=== PATIENT | male | born 1960 | race Caucasian/White ===

== ENCOUNTER → 2016-11-21 | Outpatient (CLI) | payer MEDICARE, MEDICAID ==
[~2016-11-21] MED LIST: AMLO10TA80 PO; ASPI-1159 PO; BRIM5DRO6 OP; CINA90TA PO; DORZOLAMIDE RIGHTEYE; HYDR-4135 PO; INSLAN SQ; INSNOV SUBCUT; LOPE2CAP PO; SEVE800T PO
== END | disposition home or self-care (01) ==
LOC: RAD 09:15
PROVIDERS: ATTEND Internal Medicine Nephrology
DX: Z01.810 Encounter for preprocedural cardiovascular examination (principal); R94.31 Abnormal electrocardiogram [ECG] [EKG]
CPT/HCPCS: 93005

== ENCOUNTER → 2017-07-13 | Outpatient (CLI) | payer MEDICARE, MEDICAID ==
[~2017-07-13] MED LIST changes: +BARIUM SULFATE 450ML ORAL SUSP ONE; +REN800 PO; -SEVE800T PO
== END | disposition home or self-care (01) ==
LOC: CT 08:33
PROVIDERS: ATTEND Internal Medicine Nephrology
DX: N26.1 Atrophy of kidney (terminal) (principal); I25.10 Atherosclerotic heart disease of native coronary artery without angina pectoris
CPT/HCPCS: 74176

== ENCOUNTER → 2017-07-20 | Outpatient (CLI) | payer MEDICARE, MEDICAID ==
[~2017-07-20] MED LIST changes: -BARIUM SULFATE 450ML ORAL SUSP ONE
== END | disposition home or self-care (01) ==
LOC: US 09:53
PROVIDERS: ATTEND Internal Medicine Nephrology
DX: N43.3 Hydrocele, unspecified (principal)
CPT/HCPCS: 76870; 93976

== ENCOUNTER → 2020-09-08 | Outpatient (CLI) | payer MEDICARE, MEDICAID ==
[~2020-09-08] MED LIST changes: -ASPI-1159 PO; +ASPI-1497 PO; +BRIM10DR2 OP; +BRIM15DR2 EACHEYE; +CINA30 PO; +CIPROFLAXACIN RIGHTEYE; +HYDR-4134 PO; +INSU3INS6 SUBCUT; +INSU3INS8 SQ; +LATA2.5D14 OP; +LOPE2TAB26 PO; +METH50TA5 PO; +NEBI5TAB3 PO; +NEO/3.5O OP; +NEOMYCIN OP; +PRED1DRO BOTHEYE; +PRED5DRO22 OP
== END | disposition home or self-care (01) ==
LOC: CT 10:30
PROVIDERS: ATTEND Internal Medicine Nephrology
DX: K80.20 Calculus of gallbladder without cholecystitis without obstruction (principal); N41.2 Abscess of prostate; I70.0 Atherosclerosis of aorta
CPT/HCPCS: 74176

== ENCOUNTER 2020-12-31 22:14 | Inpatient (IN) | payer MEDICARE, MEDICAID ==
[~2020-12-31] VITALS: Ht 167.6 cm; Wt 53.8 kg
[~2020-12-31 22:14] MED LIST changes: -NEO/3.5O OP; +NEOM3.5O42 OP
[2020-12-31 23:49] LABS: BASOPHILS % 1.3 % (0.0-2.0); EOSINOPHILS % 3.8 % (0.0-5.0); HEMATOCRIT. 36.2 % (42.0-52.0); HEMOGLOBIN. 12.1 g/dL (14.0-18.0); LYMPHOCYTES % 16.2 % (20.0-50.0); MEAN CORPUSCULAR HEMOGLOBIN 31.7 pg (28.0-32.0); MEAN CORPUSCULAR VOLUME 94.6 fL (80.0-94.0); NEUTROPHILS % 70.7 % (40.0-76.0); PLATELET 121 x1000/uL (130-400); RED BLOOD CELL COUNT 3.82 mill/uL (4.7-6.1); RED CELL DISTRIBUTION WIDTH 15.5 % (11.6-14.6)
[2020-12-31 23:57] LABS: CHLORIDE 100 mEq/L (98-107)
[2021-01-01] MEDS ORDERED: LABETALOL 5MG/ML SYR 20 MG/4 ML SYRINGE IV ONE (01:15)
[2021-01-01] MEDS ORDERED: HYDRALAZINE 20MG/ML VIAL IV ONE (04:15)
[2021-01-01] MEDS ORDERED: GUAIFENESIN 200MG/10ML SUGAR FREE UDC PO PRN (07:45)
[2021-01-01] MEDS ORDERED: ACETAMINOPHEN 325MG TABLET PO PRN ×2 (07:45)
[2021-01-01] MEDS ORDERED: ENOXAPARIN 40MG/0.4ML SYR SUBCUT SCH (07:45)
[2021-01-01] MEDS ORDERED: DEXTROSE 50% WATER 50ML SYRINGE IV PRN (07:45)
[2021-01-01] MEDS ORDERED: MAGNESIUM/ALUMINUM HYDROXIDE/SIMETHICONE 30ML UDC PO PRN (07:45)
[2021-01-01] MEDS ORDERED: TRAMADOL 50MG TABLET PO PRN (07:45)
[2021-01-01] MEDS ORDERED: ONDANSETRON HCL 4MG/2ML INJ IV PRN (07:45)
[2021-01-01] MEDS ORDERED: DIPHENHYDRAMINE 50MG/ML VIAL IV PRN (07:45)
[2021-01-01] MEDS ORDERED: IPRATROPIUM/ALBUTEROL 0.5-3(2.5)MG/3ML NEB NEB PRN (07:45)
[2021-01-01] MEDS ORDERED: ZOLPIDEM TARTRATE 5MG TABLET PO PRN (07:45)
[2021-01-01] MEDS ORDERED: ACETAMINOPHEN 650MG/20.3ML UDC GT PRN (07:45)
[2021-01-01] MEDS ORDERED: DOCUSATE SODIUM 100MG CAPSULE PO PRN (07:45)
[2021-01-01] MEDS ORDERED: NITROGLYCERIN 0.4MG TABLET SL SL PRN (07:45)
[2021-01-01] MEDS: INSULIN LISPRO 100 UNITS/ML SUBCUT SCH ×4 (08:20→21:00)
[2021-01-01] MEDS: BLOOD SUGAR DIAGNOSTIC STRIP TEST SCH ×4 (08:25→21:46)
[2021-01-01] MEDS: AMLODIPINE 10MG TABLET PO SCH (08:55)
[2021-01-01] MEDS: FAMOTIDINE 20MG TABLET PO SCH (08:55)
[2021-01-01] MEDS: ENOXAPARIN 30MG/0.3ML SYR SUBCUT SCH (08:55)
[2021-01-01] MEDS: METOPROLOL TARTRATE 25MG TABLET PO SCH ×2 (08:55→20:27)
[2021-01-01] MEDS ORDERED: FAMOTIDINE 20MG TABLET PO SCH (09:00)
[2021-01-01 10:03] LABS: TOTAL IRON BINDING CAPACITY 185 ug/dL (250-450)
[2021-01-01 10:15] LABS: FOLIC ACID (FOLATE) SERUM 5.9 ng/mL (>5.38)
[2021-01-01 11:16] LABS: HEPATITIS B SURFACE ANTIGEN NEGATIVE
[2021-01-01] MEDS: CLONIDINE 0.1MG TABLET PO PRN (11:43)
[2021-01-01 11:46] LABS: HEPATITIS A AB IGM NEGATIVE (NEGATIVE)
[2021-01-01] MEDS ORDERED: NALOXONE HCL 0.4MG/ML VIAL IV PRN (13:30)
[2021-01-01] MEDS: HYDRALAZINE HCL 50MG TABLET PO SCH ×2 (14:11→22:00)
[2021-01-01 17:55] VITALS: BP 138/72
[2021-01-01 17:57] VITALS: BP 138/72
[2021-01-01 20:00] VITALS: BP 144/83
[2021-01-01 21:31] LABS: CREATINE KINASE 78 IU/L (39-308); CREATINE KINASE MB FRACTION < 1.0 ng/mL (0.5-3.6)
[2021-01-01 22:00] VITALS: BP 137/69
[2021-01-01 23:47] LABS: CREATINE KINASE MB FRACTION 1.3 ng/mL (0.5-3.6)
[2021-01-02] VITALS (12 sets, daily range): BP systolic 107–167; BP diastolic 66–94
[2021-01-02] MEDS: CLONIDINE 0.1MG TABLET PO PRN (04:17)
[2021-01-02 06:45] LABS: EOSINOPHILS % 3.8 % (0.0-5.0); HEMATOCRIT. 38.6 % (42.0-52.0); HEMOGLOBIN. 12.6 g/dL (14.0-18.0); LYMPHOCYTES % 19.7 % (20.0-50.0); MEAN CORPUSCULAR HEMOGLOBIN 31.1 pg (28.0-32.0); MEAN PLATELET VOLUME 8.4 fl (7.4-10.4); MONOCYTES % 9.1 % (2.0-8.0); NEUTROPHILS % 65.4 % (40.0-76.0); PLATELET 114 x1000/uL (130-400); RED BLOOD CELL COUNT 4.06 mill/uL (4.7-6.1); RED CELL DISTRIBUTION WIDTH 15.4 % (11.6-14.6)
[2021-01-02 06:59] LABS: CHLORIDE 101 mEq/L (98-107)
[2021-01-02 07:06] LABS: PHOSPHORUS 2.3 mg/dL (2.5-4.9)
[2021-01-02] MEDS: METOPROLOL TARTRATE 25MG TABLET PO SCH ×2 (08:16→21:48)
[2021-01-02] MEDS: FAMOTIDINE 20MG TABLET PO SCH (08:16)
[2021-01-02] MEDS: AMLODIPINE 10MG TABLET PO SCH (08:16)
[2021-01-02] MEDS: ENOXAPARIN 30MG/0.3ML SYR SUBCUT SCH (08:16)
[2021-01-02] MEDS: HYDRALAZINE HCL 50MG TABLET PO SCH ×3 (08:16→21:48)
[2021-01-02] MEDS: BLOOD SUGAR DIAGNOSTIC STRIP TEST SCH ×4 (08:17→20:46)
[2021-01-02] MEDS: INSULIN LISPRO 100 UNITS/ML SUBCUT SCH ×4 (08:17→21:48)
[2021-01-02] MEDS ORDERED: LORAZEPAM 2MG/ML CPJ IV NR (10:45)
[2021-01-03] VITALS (11 sets, daily range): BP systolic 135–153; BP diastolic 50–82
[2021-01-03] MEDS: BLOOD SUGAR DIAGNOSTIC STRIP TEST SCH ×4 (06:03→21:00)
[2021-01-03] MEDS: HYDRALAZINE HCL 50MG TABLET PO SCH ×3 (06:28→21:22)
[2021-01-03] MEDS: INSULIN LISPRO 100 UNITS/ML SUBCUT SCH ×4 (06:29→21:00)
[2021-01-03 06:54] LABS: BASOPHILS % 1.4 % (0.0-2.0); EOSINOPHILS % 4.1 % (0.0-5.0); HEMATOCRIT. 36.1 % (42.0-52.0); LYMPHOCYTES % 27.5 % (20.0-50.0); MEAN CORPUSCULAR HEMOGLOBIN 31.1 pg (28.0-32.0); MEAN CORPUSCULAR VOLUME 93.5 fL (80.0-94.0); MEAN PLATELET VOLUME 9.1 fl (7.4-10.4); MONOCYTES % 10.4 % (2.0-8.0); NEUTROPHILS % 56.6 % (40.0-76.0); PLATELET 134 x1000/uL (130-400); RED BLOOD CELL COUNT 3.86 mill/uL (4.7-6.1); RED CELL DISTRIBUTION WIDTH 14.8 % (11.6-14.6)
[2021-01-03] MEDS: ENOXAPARIN 30MG/0.3ML SYR SUBCUT SCH (08:17)
[2021-01-03] MEDS: AMLODIPINE 10MG TABLET PO SCH (08:17)
[2021-01-03] MEDS: FAMOTIDINE 20MG TABLET PO SCH (08:17)
[2021-01-03] MEDS: METOPROLOL TARTRATE 25MG TABLET PO SCH ×2 (08:17→21:22)
[2021-01-03] MEDS ORDERED: LORAZEPAM 2MG/ML CPJ IV NR (14:45)
[2021-01-04] VITALS (12 sets, daily range): BP systolic 128–148; BP diastolic 59–81
[2021-01-04] MEDS: BLOOD SUGAR DIAGNOSTIC STRIP TEST SCH ×4 (06:26→21:00)
[2021-01-04] MEDS: HYDRALAZINE HCL 50MG TABLET PO SCH ×3 (06:26→22:30)
[2021-01-04] MEDS: INSULIN LISPRO 100 UNITS/ML SUBCUT SCH ×4 (06:32→21:00)
[2021-01-04 06:55] LABS: BASOPHILS % 2.5 % (0.0-2.0); HEMATOCRIT. 37.9 % (42.0-52.0); HEMOGLOBIN. 12.5 g/dL (14.0-18.0); LYMPHOCYTES % 27.4 % (20.0-50.0); MEAN CORPUSCULAR HEMOGLOBIN 31.1 pg (28.0-32.0); MEAN CORPUSCULAR VOLUME 94.2 fL (80.0-94.0); MEAN PLATELET VOLUME 9.2 fl (7.4-10.4); MONOCYTES % 10.1 % (2.0-8.0); PLATELET 134 x1000/uL (130-400); RED BLOOD CELL COUNT 4.03 mill/uL (4.7-6.1); RED CELL DISTRIBUTION WIDTH 14.9 % (11.6-14.6)
[2021-01-04] MEDS: AMLODIPINE 10MG TABLET PO SCH (08:12)
[2021-01-04] MEDS: FAMOTIDINE 20MG TABLET PO SCH (08:12)
[2021-01-04] MEDS: ENOXAPARIN 30MG/0.3ML SYR SUBCUT SCH (08:12)
[2021-01-04] MEDS: METOPROLOL TARTRATE 25MG TABLET PO SCH ×2 (08:12→22:30)
[2021-01-05] VITALS (11 sets, daily range): BP systolic 101–145; BP diastolic 55–74
[2021-01-05] MEDS: BLOOD SUGAR DIAGNOSTIC STRIP TEST SCH ×3 (06:20→16:28)
[2021-01-05] MEDS: HYDRALAZINE HCL 50MG TABLET PO SCH ×2 (06:20→14:12)
[2021-01-05] MEDS: INSULIN LISPRO 100 UNITS/ML SUBCUT SCH ×3 (07:20→16:28)
[2021-01-05] MEDS: FAMOTIDINE 20MG TABLET PO SCH (08:22)
[2021-01-05] MEDS: ENOXAPARIN 30MG/0.3ML SYR SUBCUT SCH (08:22)
[2021-01-05] MEDS: AMLODIPINE 10MG TABLET PO SCH (08:23)
[2021-01-05] MEDS: METOPROLOL TARTRATE 25MG TABLET PO SCH (08:23)
== END 2021-01-05 23:57 | DRG 91 ==
LOC: ER 23:17 → 3WST 01-01 04:16 → EDBEDREQTM 01-01 04:19 → EDBEDREQ 01-01 04:19 → SUPCPDRO 01-01 07:37 → ENRESERV 01-01 16:56 → 3WST 01-02 09:13
PROVIDERS: ADMIT Internal Medicine; ATTEND Internal Medicine
PROC: 5A1D70Z Performance of Urinary Filtration, Intermittent, Less than 6 Hours Per Day (ICD-10-PCS; principal; 2021-01-01)
PROC: 5A1D70Z Performance of Urinary Filtration, Intermittent, Less than 6 Hours Per Day (ICD-10-PCS; 2021-01-04)
DX: G92 Toxic encephalopathy (principal); N18.6 End stage renal disease; I16.1 Hypertensive emergency; I50.30 Unspecified diastolic (congestive) heart failure; I13.2 Hypertensive heart and chronic kidney disease with heart failure and with stage 5 chronic kidney disease, or end stage renal disease; K80.20 Calculus of gallbladder without cholecystitis without obstruction; D63.8 Anemia in other chronic diseases classified elsewhere; E11.22 Type 2 diabetes mellitus with diabetic chronic kidney disease; E11.319 Type 2 diabetes mellitus with unspecified diabetic retinopathy without macular edema; E83.51 Hypocalcemia; G93.89 Other specified disorders of brain; N62 Hypertrophy of breast; Z79.4 Long term (current) use of insulin; Z86.73 Personal history of transient ischemic attack (TIA), and cerebral infarction without residual deficits; Z99.2 Dependence on renal dialysis; Z79.899 Other long term (current) drug therapy; Z79.82 Long term (current) use of aspirin
CPT/HCPCS: 36415; 70551; 71045; 71250; 80048; 80053; 82550; 82553; 82607; 82746; 82962; 83036; 83540; 83550; 83735; 83880; 84100; 84484; 85025; 86705; 86709; 86803; 87340; 93005; 93970; 97162; 97166; 99285; J0360; J1650; J1815; J2060; J3490